=== PATIENT | male | born 2000 | race Caucasian/White ===

== ENCOUNTER 2018-01-28 20:45 | Emergency (ER) | payer OTHER ==
[~2018-01-28] VITALS: Ht 177.8 cm; Wt 81.0 kg
[2018-01-28 20:52] VITALS: TEMP 36.7; O2SAT 98; Ht 177.8 cm; Wt 81.0 kg
--- NOTE | 2018-01-28 21:14 | EMERGENCY ROOM VISIT NOTE ---
History Report prepared by Lucas: Claudine Vazquez Under the Supervision of: Dr. Suhail Hu M.D. First contact with patient: 20:53 Chief Complaint: ALCOHOL OVERDOSE Stated Complaint: UNCONSCIOUS ALCOHOL OVERDOSE History of Present Illness The patient is a 17 year old male with no past medical history who presents to the ED with a cc of an episode of an alcohol overdose beginning prior to arrival. Per nursing staff, the patient was dropped off at his brother' s house by his friends. They report that he wouldn't wake up and was vomiting. They state that they put him in the tub and he still wouldn't wake up. They report that his brother was worried about his breathing. Positive vomiting. HPI and ROS limited secondary to alcohol intoxication. Source of History: nursing staff History Limited By: intoxication Onset: prior to arrival Position: other (global) Quality: other (alcohol overdose) Timing: other (episode) Associated Symptoms: + vomiting Review of Systems See HPI for pertinent positives and negatives. A total of ten systems were reviewed and were otherwise negative. Past Medical & Surgical Medical Problems: (1) No Known Active Medical Problems Family History No pertinent family history Social History Alcohol Use: occasionally Marital Status: single Housing Status: lives with roommate Occupation Status: [employer] student Current/Historical Medications Unable to Obtain Active Prescriptions or Reported Meds Physical Exam Vital Signs Date Time Temp Pulse Resp B/P (MAP) Pulse Ox O2 Delivery O2 Flow Rate FiO2 01/28/18 22:15 81 18 122/50 98 Room Air 01/28/18 20:56 58 01/28/18 20:52 98 Room Air 01/28/18 20:52 36.7 77 22 107/51 98 Room Air Physical Exam GENERAL: Well-appearing, NAD HENT: Normocephalic, atraumatic. EYES: Normal conjunctiva. Sclera non-icteric. No anisocoria. PERRL. 3 mm pupils. NECK: Supple. No nuchal rigidity. FROM. RESPIRATORY: CTAB, no rhonchi, wheezing, crackles, sonorous breath sounds throughout. CARDIAC: RRR, no MRG ABDOMEN: Soft, NTND, BS+ MSK: No chest wall TTP, no LE edema NEURO: GCS 15, CN 2-12 intact, moves all 4s to pain. GCS 7. SKIN: No rash or jaundice noted. Medical Decision & Procedures ER Provider Diagnostic Interpretation: Radiology results as stated below per my review and radiologist interpretation: CHEST ONE VIEW PORTABLE HISTORY: Alcohol overdose. COMPARISON: None. FINDINGS: The lungs are clear. The heart is normal in size. No pleural effusions. No pneumothorax. Incidental note is made of a right azygos lobe. IMPRESSION: No acute process. Electronically signed by: Dinesh Huizar M.D. 01/28/2018 10:36 PM Dictated Date/Time: 01/28/2018 10:35 PM Laboratory Results 01/28/18 21:17 Test 01/28/18 21:17 Anion Gap 9.0 mmol/L (3-11) Est Creatinine Clear Calc Drug Dose 114.7 ml/min Estimated GFR () 116.0 Estimated GFR (Non- 100.1 BUN/Creatinine Ratio 14.6 (10-20) Calcium Level 8.2 mg/dl (8.5-10.1) Ethyl Alcohol mg/dL 315.6 mg/dl (0-3) Laboratory results reviewed by [facility] ED Course 2056: The patient was evaluated in room A9B. A complete history and physical exam was performed. 2251: I reevaluated the patient and he is asleep. 0230: The patient was signed out to Dr. Christopher Blanco at change of shift. Medical Decision The patient is a 17 year old male with no past medical history who presents to the ED with a cc of an episode of an alcohol overdose beginning prior to arrival. Nursing notes reviewed. Ancillary studies and prior records reviewed. Differential diagnosis: Etiologies such as alcohol intoxication, toxicologic, infection, hypoglycemia, electrolyte abnormalities, cardiac sources, intracerebral event, neurologic, as well as others were entertained. Patient was seen and evaluated at the bedside. Patient reportedly had been drinking a lot of alcohol this evening at which point he was taken to his brother's apartment was placed in a warm bath but he was not very coherent or arousable. Patient on exam does have some sonorous breath sounds and the patient only responds to painful stimuli. Patient had had numerous bouts of emesis prior to arrival. Patient was placed on oxygen as the patient was having O2 sats in the low 90s. I did perform vigorous suction of the mouth and nose. The patient had improved oxygen saturation thereafter. Patient did blood work completed along with a chest x-ray. Chest x-ray is clear. Alcohol is later than 300. Patient will likely need a reassessment in the patient would be more sober for a recheck around 6 AM. Patient's BMP is fairly unremarkable. Patient was signed out to night time provider pending reassessment, evaluation, and treatment. Head Trauma GCS Score: 7 Medication Reconcilliation Current Medication List: was personally reviewed by me Blood Pressure Screening Patient's blood pressure: Normal blood pressure Blood pressure disposition: Did not require urgent referral Impression Primary Impression: Alcohol use with intoxication Additional Impression: Hypokalemia Scribe Attestation The scribe's documentation has been prepared under my direction and personally reviewed by me in its entirety. I confirm that the note above accurately reflects all work, treatment, procedures, and medical decision making performed by me. Departure Information Dispostion Still a Patient Prescriptions Unable to Obtain Active Prescriptions or Reported Meds Referrals No Doctor, Assigned (PCP) Patient Instructions My [facility] Problem Qualifiers
[2018-01-28 21:49] LABS: CALCIUM 8.2 mg/dl (8.5-10.1); CREATININE 1.07 mg/dl (0.60-1.40); POTASSIUM 3.4 mmol/L (3.5-5.1)
--- NOTE | 2018-01-28 22:38 | DIAGNOSTIC IMAGING REPORT ---
CHEST ONE VIEW PORTABLE HISTORY: Alcohol overdose. COMPARISON: None. FINDINGS: The lungs are clear. The heart is normal in size. No pleural effusions. No pneumothorax. Incidental note is made of a right azygos lobe. IMPRESSION: No acute process. Electronically signed by: Dinesh Huizar M.D. 01/28/2018 10:36 PM Dictated Date/Time: 01/28/2018 10:35 PM
[2018-01-29 03:00] VITALS: BP 100/50; PULSE 80; O2SAT 98
--- NOTE | 2018-01-29 03:48 | EMERGENCY ROOM VISIT NOTE ---
ED Visit Note First contact with patient: 00:52 17 yr old male arrived earlier in the evening for alcohol intoxication and evaluated by Dr Hu. Labs revealed +etoh and mild hypoK. CXR clear. Patient signed out to me awaiting sobering up. After about 7 hours patient awake, still somewhat intoxicated but able to put clothes on and talking. Brother here and wishes to take patient home which seems reasonable. Discussed findings and concerns of his alcohol intoxication.
== END 2018-01-29 03:40 | disposition home or self-care (01) ==
LOC: C.EDA 20:47
DX: F10.920 Alcohol use, unspecified with intoxication, uncomplicated (principal); E87.6 Hypokalemia; Y90.8 Blood alcohol level of 240 mg/100 ml or more